=== PATIENT | female | born 1980 | race Caucasian/White ===

== ENCOUNTER 2021-11-18 09:37 | Outpatient (CLI) | payer OTHER, SELFPAY ==
--- NOTE | ~2021-11-18 | MMUS_ITS ---
EXAMINATION: MM diagnostic mukesh BI w dagoberto, US breast RT limited HISTORY: Palpable lump in the upper outer quadrant of the right breast TECHNIQUE: Craniocaudal, mediolateral, and mediolateral oblique 3-D tomosynthesis images of the lópez ts were performed and synthetic 2-D images were generated. CAD analysis was submitted and interpreted . High resolution limited right breast ultrasound was performed. COMPARISON: None, baseline BREAST PARENCHYMAL COMPOSITION: The breasts are heterogeneously dense, which may obscure small masses . FINDINGS: MAMMOGRAPHIC FINDINGS: There is no suspicious mass, calcification, or architectural distortion in either breast to suggest malignancy. No mammographic correlate is identified for the reported palpable abnormality in the uppe r outer quadrant of the right breast. ULTRASOUND: There is a 6 mm cyst of the right breast at the 10:00 location 9 cm from the nipple. No suspicious cy stic or solid mass is identified. IMPRESSION: 1. No suspicious mammographic or sonographic correlate is identified for the reported palpable abnorm ality of concern. Further evaluation at this time should be based on clinical assessment. Continued f ollow-up physical examination is recommended. 2. Recommend routine screening mammography in one year. BI-RADS Category 2: Benign finding(s). Reviewed, dictated and finalized at location A. IMPRESSION: 1. No suspicious mammographic or sonographic correlate is identified for the re ported palpable abnormality of concern. Further evaluation at this time should be based on clinical assessment. Continued follow-up physical examination is re commended. 2. Recommend routine screening mammography in one year. BI-RADS Category 2: Benign finding(s).
== END 2021-11-18 09:38 | disposition home or self-care (01) ==
PROVIDERS: PCP Nurse Practitioner; Visit Provider Nurse Practitioner
DX: N63.11 Unspecified lump in the right breast, upper outer quadrant (principal)
CPT/HCPCS: 76642; 77062; 77066; G0279